=== PATIENT | female | born 1955 | race African-American/Black ===

== ENCOUNTER 2016-11-12 21:29 | Inpatient (IN) | payer OTHER, MEDICAID ==
[~2016-11-12] VITALS: Ht 152.4 cm; Wt 71.8 kg
[2016-11-12] MEDS ORDERED: TIOT185 IH (21:46)
[2016-11-12] MEDS ORDERED: PARO20TA24 PO (21:46)
[2016-11-12] MEDS ORDERED: METF500T4 PO (21:46)
[2016-11-12] MEDS ORDERED: ALBU8.5H8 IH (21:46)
[2016-11-12 22:08] LABS: BASOPHILS # (AUTO) 0.03 K/uL (0.00-0.20); BASOPHILS % (AUTO) 0.6 % (0.0-2.0); EOSINOPHILS # (AUTO) 0.14 K/uL (0.00-0.70); EOSINOPHILS % (AUTO) 2.48 % (1.0-6.0); HEMATOCRIT 36.3 % (36-46); HEMOGLOBIN 12.3 g/dL (12.0-16.0); LYMPHOCYTES # (AUTO) 2.5 K/uL (1.0-4.8); LYMPHOCYTES % (AUTO) 45.2 % (22.0-44.0); MEAN CORPUSCULAR HEMOGLOBIN 29.8 pg (26.0-34.0); MEAN CORPUSCULAR VOLUME 88 fL (80-100); MONOCYTES # (AUTO) 0.4 K/uL (0.1-1.0); MONOCYTES % (AUTO) 7.9 % (2.0-9.0); NEUTROPHILS # (AUTO) 2.4 K/uL (1.8-7.7); NEUTROPHILS % (AUTO) 43.9 % (40.0-70.0); PLATELET COUNT (AUTO) 281 K/uL (150-450); RED BLOOD CELL COUNT(AUTO) 4.14 MIL/uL (4.00-5.20); RED CELL DISTRIBUTION WIDTH 16.6 % (11.5-14.5); WHITE BLOOD COUNT (AUTO) 5.5 K/uL (4.5-11.0)
[2016-11-12 22:27] LABS: CALCIUM, TOTAL 8.9 mg/dL (8.8-10.5); POTASSIUM 3.7 mmol/L (3.5-5.1)
[2016-11-12 22:33] LABS: ALBUMIN 3.4 g/dL (3.4-5.0); BILIRUBIN,TOTAL 0.1 mg/dL (0.1-1.0); TOTAL PROTEIN, SERUM 7.5 g/dL (6.4-8.2)
[2016-11-12] MEDS ORDERED: HALOPERIDOL 5 MG TABLET PO PRN (23:45)
[2016-11-12 23:50] LABS: ADD UA MICROSCOPIC NO; APPEARANCE,URINE CLEAR (CLEAR); GLUCOSE, URINE (UA) NEGATIVE (NEGATIVE); KETONES,URINE NEGATIVE (NEGATIVE); LEUKOCYTE ESTERASE ,URINE NEGATIVE (NEGATIVE); OCCULT BLOOD,URINE NEGATIVE (NEGATIVE); PH,URINE 5.5 (5.0-8.0); PROTEIN,URINE NEGATIVE (NEGATIVE)
[2016-11-13] VITALS (8 sets, daily range): BP systolic 131–156; BP diastolic 73–89
[2016-11-13] MEDS ORDERED: IBUPROFEN 800 MG TABLET PO ONE
[2016-11-13] MEDS ORDERED: PNEUMOCOCCAL VACCINE POLYVALENT 0.5 ML VIAL [PPSV23] IM ONE (04:00)
[2016-11-13] MEDS: LORazepam 2 MG TABLET PO PRN ×3 (05:57→18:48)
[2016-11-13 06:52] LABS: GLUCOSE,POINT OF CARE 91 MG/DL (70-110)
[2016-11-13] MEDS ORDERED: ACETAMINOPHEN 325 MG TABLET PO PRN (08:45)
[2016-11-13] MEDS ORDERED: BACITRACIN 28.4 GM OINTMENT TP PRN (08:45)
[2016-11-13] MEDS ORDERED: ONDANSETRON HCL 4 MG TABLET PO PRN (08:45)
[2016-11-13] MEDS ORDERED: ALBUTEROL SULFATE HFA 90 MCG/PUFF 8 GM INHALER IH PRN (08:45)
[2016-11-13] MEDS ORDERED: LOPERAMIDE HCL 2 MG CAPSULE PO PRN (08:45)
[2016-11-13] MEDS ORDERED: MAGNESIUM HYDROXIDE SUSPENSION 30 ML UDCUP PO PRN (08:45)
[2016-11-13] MEDS ORDERED: MAG HYDROX/AL HYDROX/SIMETH ES 30 ML SUSPENSION UDCUP PO PRN (08:45)
[2016-11-13] MEDS ORDERED: PETROLATUM,WHITE 71 GM JELLY TP PRN (08:45)
[2016-11-13] MEDS ORDERED: CloNIDine HCL 0.1 MG TABLET PO PRN (08:45)
[2016-11-13] MEDS ORDERED: BENZOCAINE/MENTHOL LOZENGE MM PRN (08:45)
[2016-11-13] MEDS: PARoxetine HCL 20 MG TABLET PO SCH (09:38)
[2016-11-13] MEDS ORDERED: PRAV40TA4 PO (10:20)
[2016-11-13] MEDS ORDERED: METF500T4 PO (10:20)
[2016-11-13] MEDS ORDERED: HYDR25TA PO (10:20)
[2016-11-13] MEDS ORDERED: GLUCAGON,HUMAN RECOMBINANT 1 MG VIAL IM PRN (11:00)
[2016-11-13] MEDS ORDERED: INSULIN ASPART 100 UNITS/ML SQ PRN (11:00)
[2016-11-13 11:18] LABS: GLUCOSE,POINT OF CARE 80 MG/DL (70-110)
[2016-11-13] MEDS: HYDROCHLOROTHIAZIDE 25 MG TABLET PO SCH (12:00)
[2016-11-13] MEDS: TIOTROPIUM BROMIDE 18 MCG/INH HANDIHALER [5] IH SCH (16:07)
[2016-11-13] MEDS: PRAVASTATIN SODIUM 40 MG TABLET PO SCH (16:07)
[2016-11-13 16:17] LABS: GLUCOSE,POINT OF CARE 94 MG/DL (70-110)
[2016-11-13] MEDS: MetFORMIN HCL 500 MG TABLET PO SCH (17:07)
[2016-11-13 20:27] LABS: GLUCOSE,POINT OF CARE 108 MG/DL (70-110)
[2016-11-13] MEDS: ZOLPIDEM TARTRATE 10 MG TABLET PO PRN (21:29)
[2016-11-14] VITALS (7 sets, daily range): BP systolic 13–145; BP diastolic 8–93
[2016-11-14 06:28] LABS: GLUCOSE,POINT OF CARE 89 MG/DL (70-110)
[2016-11-14] MEDS: MetFORMIN HCL 500 MG TABLET PO SCH ×2 (06:55→16:54)
[2016-11-14 08:13] LABS: HEMOGLOBIN A1C 5.8 % (4.5-6.2)
[2016-11-14] MEDS: TIOTROPIUM BROMIDE 18 MCG/INH HANDIHALER [5] IH SCH (08:36)
[2016-11-14] MEDS: PRAVASTATIN SODIUM 40 MG TABLET PO SCH (08:36)
[2016-11-14] MEDS: PARoxetine HCL 20 MG TABLET PO SCH (08:36)
[2016-11-14] MEDS: HYDROCHLOROTHIAZIDE 25 MG TABLET PO SCH (08:36)
[2016-11-14 09:30] LABS: THYROID STIMULATING HORMONE 0.42 uIU/mL (0.36-3.74)
[2016-11-14 10:57] LABS: GLUCOSE,POINT OF CARE 100 MG/DL (70-110)
[2016-11-14] MEDS: IBUPROFEN 600 MG TABLET PO PRN ×2 (14:37→20:43)
[2016-11-14 20:48] LABS: GLUCOSE,POINT OF CARE 107 MG/DL (70-110)
[2016-11-15 06:17] LABS: GLUCOSE,POINT OF CARE 104 MG/DL (70-110)
[2016-11-15] MEDS: MetFORMIN HCL 500 MG TABLET PO SCH ×2 (06:46→16:39)
[2016-11-15 06:52] VITALS: BP 140/90
[2016-11-15 08:16] VITALS: BP 114/63
[2016-11-15] MEDS: PARoxetine HCL 20 MG TABLET PO SCH (09:11)
[2016-11-15] MEDS: TIOTROPIUM BROMIDE 18 MCG/INH HANDIHALER [5] IH SCH (09:11)
[2016-11-15] MEDS: PRAVASTATIN SODIUM 40 MG TABLET PO SCH (09:11)
[2016-11-15] MEDS: HYDROCHLOROTHIAZIDE 25 MG TABLET PO SCH (09:11)
[2016-11-15 12:23] VITALS: BP 139/77
[2016-11-15] MEDS: IBUPROFEN 600 MG TABLET PO PRN ×2 (12:23→20:47)
[2016-11-15 13:23] VITALS: BP 123/69
[2016-11-15 16:12] VITALS: BP 136/85
[2016-11-15] MEDS ORDERED: DICLOFENAC SODIUM 1% 100 GM GEL [2GM] TP PRN (17:30)
[2016-11-15] MEDS: LORazepam 2 MG TABLET PO PRN (20:46)
[2016-11-16 06:28] VITALS: BP 135/86
[2016-11-16 06:47] LABS: GLUCOSE,POINT OF CARE 96 MG/DL (70-110)
[2016-11-16] MEDS: MetFORMIN HCL 500 MG TABLET PO SCH ×2 (07:05→16:37)
[2016-11-16 09:06] VITALS: BP 120/67
[2016-11-16] MEDS: PARoxetine HCL 20 MG TABLET PO SCH (09:07)
[2016-11-16] MEDS: HYDROCHLOROTHIAZIDE 25 MG TABLET PO SCH (09:07)
[2016-11-16] MEDS: PRAVASTATIN SODIUM 40 MG TABLET PO SCH (09:07)
[2016-11-16] MEDS: NICOTINE 7 MG/24 HOUR PATCH TD SCH (09:07)
[2016-11-16] MEDS: TIOTROPIUM BROMIDE 18 MCG/INH HANDIHALER [5] IH SCH (09:07)
[2016-11-16] MEDS: IBUPROFEN 600 MG TABLET PO PRN ×2 (14:40→21:51)
[2016-11-16 14:46] VITALS: BP 120/73
[2016-11-16 16:10] VITALS: BP 129/73
[2016-11-16] MEDS: ZOLPIDEM TARTRATE 10 MG TABLET PO PRN (21:43)
[2016-11-16 21:47] VITALS: BP 132/82
[2016-11-17 05:42] VITALS: BP 139/67
[2016-11-17] MEDS: MetFORMIN HCL 500 MG TABLET PO SCH (06:46)
[2016-11-17] MEDS ORDERED: METF500T4 PO (07:57)
[2016-11-17] MEDS ORDERED: PARO20TA24 PO (07:57)
[2016-11-17 08:08] VITALS: BP 136/80
[2016-11-17] MEDS: HYDROCHLOROTHIAZIDE 25 MG TABLET PO SCH (08:53)
[2016-11-17] MEDS: PRAVASTATIN SODIUM 40 MG TABLET PO SCH (08:53)
[2016-11-17] MEDS: NICOTINE 7 MG/24 HOUR PATCH TD SCH (08:54)
[2016-11-17] MEDS: TIOTROPIUM BROMIDE 18 MCG/INH HANDIHALER [5] IH SCH (08:56)
[2016-11-17] MEDS ORDERED: PARoxetine HCL 20 MG TABLET PO SCH (09:00)
[2016-11-17 12:47] LABS: GLUCOSE,POINT OF CARE 106 MG/DL (70-110)
== END 2016-11-17 13:25 | disposition home or self-care (01) | DRG 885 ==
LOC: EMS 21:45 → AHU 11-13 00:25 → B2X 11-13 04:32
DX: F33.3 Major depressive disorder, recurrent, severe with psychotic symptoms (principal); E11.42 Type 2 diabetes mellitus with diabetic polyneuropathy; R45.851 Suicidal ideations; E11.65 Type 2 diabetes mellitus with hyperglycemia; E78.5 Hyperlipidemia, unspecified; F41.1 Generalized anxiety disorder; F42.9 Obsessive-compulsive disorder, unspecified; I10 Essential (primary) hypertension; M54.2 Cervicalgia; M54.5 Low back pain; C50.919 Malignant neoplasm of unspecified site of unspecified female breast; J44.9 Chronic obstructive pulmonary disease, unspecified; F17.200 Nicotine dependence, unspecified, uncomplicated; Z91.040 Latex allergy status; Z28.21 Immunization not carried out because of patient refusal; Z92.21 Personal history of antineoplastic chemotherapy; Z85.3 Personal history of malignant neoplasm of breast; Z91.5 Personal history of self-harm; Z56.0 Unemployment, unspecified; Z90.12 Acquired absence of left breast and nipple; Z72.89 Other problems related to lifestyle; Z71.41 Alcohol abuse counseling and surveillance of alcoholic
CPT/HCPCS: 82306; 82962; 83036; 84443; 99285; G0480

== ENCOUNTER 2017-02-14 10:51 | Inpatient (IN) | payer MEDICAID, OTHER, SELFPAY ==
[2017-02-14] VITALS (7 sets, daily range): BP systolic 142–154; BP diastolic 64–90
[~2017-02-14] VITALS: Ht 152.4 cm; Wt 74.3 kg
[~2017-02-14 10:51] MED LIST: HYDR25TA PO; METF500T4 PO; PARO20TA24 PO; PRAV40TA4 PO; TIOT185 IH
[2017-02-14] MEDS ORDERED: ALBUTEROL SULFATE HFA 90 MCG/PUFF 8 GM INHALER IH PRN (11:15)
[2017-02-14] MEDS ORDERED: ChlordiazePOXIDE HCL 25 MG CAPSULE PO PRN (11:15)
[2017-02-14 14:57] LABS: GLUCOSE COMMENT 1 Doctor Notified; GLUCOSE,POINT OF CARE 127 MG/DL (70-110)
[2017-02-14] MEDS ORDERED: PNEUMOCOCCAL VACCINE POLYVALENT 0.5 ML VIAL [PPSV23] IM ONE (15:00)
[2017-02-14] MEDS ORDERED: ACETAMINOPHEN 325 MG TABLET PO PRN (22:30)
[2017-02-14] MEDS: IBUPROFEN 400 MG TABLET PO PRN (22:35)
[2017-02-15] VITALS (10 sets, daily range): BP systolic 115–156; BP diastolic 69–91
[2017-02-15] MEDS ORDERED: ChlordiazePOXIDE HCL 25 MG CAPSULE PO PRN (07:00)
[2017-02-15] MEDS: IBUPROFEN 400 MG TABLET PO PRN ×2 (08:24→21:23)
[2017-02-15] MEDS: HYDROCHLOROTHIAZIDE 25 MG TABLET PO SCH (08:24)
[2017-02-15] MEDS: MULTIVITAMINS, THERAPEUTIC TABLET PO SCH (08:25)
[2017-02-15] MEDS: TIOTROPIUM BROMIDE 18 MCG/INH HANDIHALER [5] IH SCH (08:25)
[2017-02-15] MEDS: ChlordiazePOXIDE HCL 25 MG CAPSULE PO SCH ×4 (08:25→21:24)
[2017-02-15] MEDS: VITAMIN E 400 UNITS CAPSULE PO SCH (08:26)
[2017-02-15] MEDS: ASCORBIC ACID 500 MG TABLET PO SCH (08:26)
[2017-02-15] MEDS: PARoxetine HCL 20 MG TABLET PO SCH (08:27)
[2017-02-15 08:29] LABS: BASOPHILS % (AUTO) 0.4 % (0.0-2.0); EOSINOPHILS % (AUTO) 2.5 % (1.0-6.0); HEMOGLOBIN 12.5 g/dL (12.0-16.0); LYMPHOCYTES # (AUTO) 1.5 K/uL (1.0-4.8); LYMPHOCYTES % (AUTO) 28.6 % (22.0-44.0); MEAN CORPUSCULAR HEMOGLOBIN 29.4 pg (26.0-34.0); MEAN CORPUSCULAR HGB CONC 33.7 G/dL (31.0-37.0); MEAN CORPUSCULAR VOLUME 87 fL (80-100); MONOCYTES # (AUTO) 0.5 K/uL (0.1-1.0); NEUTROPHILS # (AUTO) 3.2 K/uL (1.8-7.7); NEUTROPHILS % (AUTO) 59.5 % (40.0-70.0); PLATELET COUNT (AUTO) 224 K/uL (150-450); RED BLOOD CELL COUNT(AUTO) 4.23 MIL/uL (4.00-5.20); RED CELL DISTRIBUTION WIDTH 14.3 % (11.5-14.5); WHITE BLOOD COUNT (AUTO) 5.3 K/uL (4.5-11.0)
[2017-02-15] MEDS: PRAVASTATIN SODIUM 40 MG TABLET PO SCH (09:01)
[2017-02-15 09:16] LABS: ALANINE AMINOTRANSFERASE 24 U/L (12-78); ANION GAP 5 mmol/L (8-16); ASPARTATE AMINOTRANSFERASE 22 U/L (15-37); BILIRUBIN,TOTAL 0.6 mg/dL (0.1-1.0); CALCIUM, TOTAL 8.9 mg/dL (8.8-10.5); CARBON DIOXIDE 30 mmol/L (22-29); CHLORIDE 107 mmol/L (98-107); CREATININE 0.93 mg/dL (0.60-1.30); GLOMERULAR FILTR. RATE CALC > 60 mL/min (>60); POTASSIUM 4.5 mmol/L (3.5-5.1); SODIUM SERUM 142 mmol/L (136-145); THYROID STIMULATING HORMONE 0.46 uIU/mL (0.36-3.74); TOTAL PROTEIN, SERUM 6.7 g/dL (6.4-8.2); UREA NITROGEN, BLOOD 15 mg/dL (7-18)
[2017-02-15] MEDS ORDERED: PARoxetine HCL 20 MG TABLET PO SCH (09:45)
[2017-02-15] MEDS ORDERED: CYANOCOBALAMIN 1,000 MCG/ML VIAL IM ONE (10:00)
[2017-02-15] MEDS: THIAMINE HCL 100 MG TABLET PO SCH ×2 (11:36→17:38)
[2017-02-15] MEDS: FOLIC ACID 1 MG TABLET PO SCH (11:36)
[2017-02-15] MEDS ORDERED: DOCUSATE SODIUM 100 MG CAPSULE PO PRN (20:30)
[2017-02-16] VITALS (7 sets, daily range): BP systolic 117–156; BP diastolic 72–88
[2017-02-16] MEDS: ChlordiazePOXIDE HCL 25 MG CAPSULE PO SCH ×4 (08:36→20:03)
[2017-02-16] MEDS: THIAMINE HCL 100 MG TABLET PO SCH ×2 (08:36→16:18)
[2017-02-16] MEDS: HYDROCHLOROTHIAZIDE 25 MG TABLET PO SCH (08:36)
[2017-02-16] MEDS: MULTIVITAMINS, THERAPEUTIC TABLET PO SCH (08:36)
[2017-02-16] MEDS: PRAVASTATIN SODIUM 40 MG TABLET PO SCH (08:36)
[2017-02-16] MEDS: TIOTROPIUM BROMIDE 18 MCG/INH HANDIHALER [5] IH SCH (08:36)
[2017-02-16] MEDS: VITAMIN E 400 UNITS CAPSULE PO SCH (08:36)
[2017-02-16] MEDS: PARoxetine HCL 20 MG TABLET PO SCH (08:36)
[2017-02-16] MEDS: ASCORBIC ACID 500 MG TABLET PO SCH (08:36)
[2017-02-16] MEDS: FOLIC ACID 1 MG TABLET PO SCH (08:36)
[2017-02-16] MEDS: IBUPROFEN 400 MG TABLET PO PRN (20:52)
[2017-02-17 00:08] VITALS: BP 138/82
[2017-02-17] MEDS ORDERED: ChlordiazePOXIDE HCL 10 MG CAPSULE PO PRN (07:00)
[2017-02-17 08:41] VITALS: BP 122/87
[2017-02-17] MEDS: ChlordiazePOXIDE HCL 10 MG CAPSULE PO SCH ×4 (08:54→20:31)
[2017-02-17] MEDS: FOLIC ACID 1 MG TABLET PO SCH (08:54)
[2017-02-17] MEDS: HYDROCHLOROTHIAZIDE 25 MG TABLET PO SCH (08:55)
[2017-02-17] MEDS: THIAMINE HCL 100 MG TABLET PO SCH ×2 (08:55→16:20)
[2017-02-17] MEDS: PARoxetine HCL 20 MG TABLET PO SCH (08:55)
[2017-02-17] MEDS: VITAMIN E 400 UNITS CAPSULE PO SCH (08:55)
[2017-02-17] MEDS: PRAVASTATIN SODIUM 40 MG TABLET PO SCH (08:55)
[2017-02-17] MEDS: MULTIVITAMINS, THERAPEUTIC TABLET PO SCH (08:55)
[2017-02-17] MEDS: ASCORBIC ACID 500 MG TABLET PO SCH (08:56)
[2017-02-17] MEDS: TIOTROPIUM BROMIDE 18 MCG/INH HANDIHALER [5] IH SCH (08:56)
[2017-02-17] MEDS: IBUPROFEN 400 MG TABLET PO PRN (09:18)
[2017-02-17 09:27] VITALS: BP 122/87
[2017-02-17 16:00] VITALS: BP 132/69
[2017-02-17] MEDS: GABAPENTIN 300 MG CAPSULE PO SCH (21:05)
[2017-02-18 00:22] VITALS: BP 120/67
[2017-02-18] MEDS ORDERED: ChlordiazePOXIDE HCL 10 MG CAPSULE PO PRN (07:00)
[2017-02-18 08:35] VITALS: BP 127/91
[2017-02-18] MEDS: ASCORBIC ACID 500 MG TABLET PO SCH (09:17)
[2017-02-18] MEDS: HYDROCHLOROTHIAZIDE 25 MG TABLET PO SCH (09:17)
[2017-02-18] MEDS: VITAMIN E 400 UNITS CAPSULE PO SCH (09:17)
[2017-02-18] MEDS: MULTIVITAMINS, THERAPEUTIC TABLET PO SCH (09:17)
[2017-02-18] MEDS: FOLIC ACID 1 MG TABLET PO SCH (09:17)
[2017-02-18] MEDS: PRAVASTATIN SODIUM 40 MG TABLET PO SCH (09:18)
[2017-02-18] MEDS: THIAMINE HCL 100 MG TABLET PO SCH ×2 (09:18→16:13)
[2017-02-18] MEDS: PARoxetine HCL 20 MG TABLET PO SCH (09:18)
[2017-02-18] MEDS: TIOTROPIUM BROMIDE 18 MCG/INH HANDIHALER [5] IH SCH (09:18)
[2017-02-18] MEDS: GABAPENTIN 300 MG CAPSULE PO SCH ×3 (09:18→16:13)
[2017-02-18 16:00] VITALS: BP 123/80
[2017-02-18] MEDS: IBUPROFEN 400 MG TABLET PO PRN (22:04)
[2017-02-18 22:05] VITALS: BP 129/82
[2017-02-19 06:55] VITALS: BP 141/86
[2017-02-19 06:56] VITALS: BP 141/86
[2017-02-19 08:42] VITALS: BP 122/77
[2017-02-19] MEDS: TIOTROPIUM BROMIDE 18 MCG/INH HANDIHALER [5] IH SCH (08:42)
[2017-02-19] MEDS: HYDROCHLOROTHIAZIDE 25 MG TABLET PO SCH (08:43)
[2017-02-19] MEDS: ASCORBIC ACID 500 MG TABLET PO SCH (08:43)
[2017-02-19] MEDS: VITAMIN E 400 UNITS CAPSULE PO SCH (08:43)
[2017-02-19] MEDS: MULTIVITAMINS, THERAPEUTIC TABLET PO SCH (08:43)
[2017-02-19] MEDS: PRAVASTATIN SODIUM 40 MG TABLET PO SCH (08:43)
[2017-02-19] MEDS: THIAMINE HCL 100 MG TABLET PO SCH ×2 (08:43→16:17)
[2017-02-19] MEDS: PARoxetine HCL 20 MG TABLET PO SCH (08:43)
[2017-02-19] MEDS: FOLIC ACID 1 MG TABLET PO SCH (08:43)
[2017-02-19] MEDS: GABAPENTIN 300 MG CAPSULE PO SCH ×3 (08:43→16:17)
[2017-02-19] MEDS ORDERED: LORazepam 2 MG TABLET PO PRN (14:15)
[2017-02-19 16:35] VITALS: BP 122/80
[2017-02-19] MEDS: IBUPROFEN 400 MG TABLET PO PRN (16:35)
[2017-02-19 16:44] VITALS: BP 120/74
[2017-02-20 00:53] VITALS: BP 124/60
[2017-02-20] MEDS: VITAMIN E 400 UNITS CAPSULE PO SCH (08:23)
[2017-02-20] MEDS: TIOTROPIUM BROMIDE 18 MCG/INH HANDIHALER [5] IH SCH (08:23)
[2017-02-20] MEDS: PARoxetine HCL 20 MG TABLET PO SCH (08:23)
[2017-02-20] MEDS: FOLIC ACID 1 MG TABLET PO SCH (08:23)
[2017-02-20] MEDS: HYDROCHLOROTHIAZIDE 25 MG TABLET PO SCH (08:23)
[2017-02-20] MEDS: GABAPENTIN 300 MG CAPSULE PO SCH ×2 (08:23→12:35)
[2017-02-20] MEDS: THIAMINE HCL 100 MG TABLET PO SCH (08:24)
[2017-02-20] MEDS: ASCORBIC ACID 500 MG TABLET PO SCH (08:24)
[2017-02-20] MEDS: MULTIVITAMINS, THERAPEUTIC TABLET PO SCH (08:24)
[2017-02-20] MEDS: PRAVASTATIN SODIUM 40 MG TABLET PO SCH (08:24)
[2017-02-20 08:54] VITALS: BP 138/79
[2017-02-20] MEDS: IBUPROFEN 400 MG TABLET PO PRN (08:55)
[2017-02-20] MEDS ORDERED: GABA300C PO (10:13)
[2017-02-20] MEDS ORDERED: ALBU8HFA4 IH (10:13)
[2017-02-20] MEDS ORDERED: CHOL400T4 PO (10:13)
[2017-02-20] MEDS ORDERED: ASCO10007 PO (10:30)
[2017-02-20] MEDS ORDERED: HYDR25TA PO (10:32)
[2017-03-28] MEDS ORDERED: ATEN50TA PO (12:08)
== END 2017-02-20 13:30 | disposition home or self-care (01) | DRG 751 ==
LOC: EDSTATUS 11:41 → B3A 11:48 → UNDOADMIN 12:41 → B3A 12:41 → B2S 02-16 11:15
PROVIDERS: ADMIT Psychiatry & Neurology Child & Adolescent Psychiatry
DX: F33.2 Major depressive disorder, recurrent severe without psychotic features (principal); R45.851 Suicidal ideations; C50.919 Malignant neoplasm of unspecified site of unspecified female breast; I10 Essential (primary) hypertension; E78.5 Hyperlipidemia, unspecified; F10.229 Alcohol dependence with intoxication, unspecified; F17.200 Nicotine dependence, unspecified, uncomplicated; G47.00 Insomnia, unspecified; J44.9 Chronic obstructive pulmonary disease, unspecified; K21.9 Gastro-esophageal reflux disease without esophagitis; K59.00 Constipation, unspecified; Z90.12 Acquired absence of left breast and nipple; Z81.8 Family history of other mental and behavioral disorders; Z92.21 Personal history of antineoplastic chemotherapy; Z92.3 Personal history of irradiation; Z79.84 Long term (current) use of oral hypoglycemic drugs; Z79.899 Other long term (current) drug therapy; Z91.040 Latex allergy status
CPT/HCPCS: 82962; 84439; 84443; J3420; J3535

== ENCOUNTER 2017-10-02 01:34 | Emergency (ER) | payer SELFPAY ==
[~2017-10-02] VITALS: Ht 162.6 cm; Wt 77.3 kg
[~2017-10-02 01:34] MED LIST changes: +ATEN50TA PO; +GABA300C PO; -HYDR25TA PO; -METF500T4 PO; -PRAV40TA4 PO; -TIOT185 IH
[2017-10-02 02:09] LABS: GLUCOSE,POINT OF CARE 87 MG/DL (70-110)
[2017-10-02] MEDS ORDERED: QUET25TA PO (02:24)
[2017-10-02] MEDS ORDERED: BUSP5TAB20 PO (02:24)
[2017-10-02 03:02] LABS: BASOPHILS % (AUTO) 0.6 % (0.0-2.0); EOSINOPHILS % (AUTO) 1.8 % (1.0-6.0); HEMATOCRIT 40.6 % (36-46); HEMOGLOBIN 13.7 g/dL (12.0-16.0); LYMPHOCYTES # (AUTO) 2.9 K/uL (1.0-4.8); LYMPHOCYTES % (AUTO) 37.7 % (22.0-44.0); MEAN CORPUSCULAR HEMOGLOBIN 28.2 pg (26.0-34.0); MEAN CORPUSCULAR HGB CONC 33.6 G/dL (31.0-37.0); MEAN CORPUSCULAR VOLUME 84 fL (80-100); MONOCYTES # (AUTO) 0.5 K/uL (0.1-1.0); MONOCYTES % (AUTO) 6.8 % (2.0-9.0); NEUTROPHILS # (AUTO) 4.1 K/uL (1.8-7.7); NEUTROPHILS % (AUTO) 53.1 % (40.0-70.0); PLATELET COUNT (AUTO) 291 K/uL (150-450); RED BLOOD CELL COUNT(AUTO) 4.85 MIL/uL (4.00-5.20); RED CELL DISTRIBUTION WIDTH 13.8 % (11.5-14.5)
[2017-10-02 03:03] LABS: ANION GAP 14 mmol/L (8-16); CALCIUM, TOTAL 8.4 mg/dL (8.8-10.5); CARBON DIOXIDE 25 mmol/L (22-29); CHLORIDE 105 mmol/L (98-107); CREATININE 1.04 mg/dL (0.60-1.30); GLOMERULAR FILTR. RATE CALC > 60 mL/min (>60); GLUCOSE,RANDOM 102 mg/dL (70-110); POTASSIUM 3.5 mmol/L (3.5-5.1); SODIUM SERUM 144 mmol/L (136-145); UREA NITROGEN, BLOOD 22 mg/dL (7-18)
[2017-10-02 03:10] LABS: ALANINE AMINOTRANSFERASE 26 U/L (12-78); ALBUMIN 3.4 g/dL (3.4-5.0); ALKALINE PHOSPHATASE 131 U/L (46-116); ASPARTATE AMINOTRANSFERASE 23 U/L (15-37); BILIRUBIN,TOTAL 0.2 mg/dL (0.1-1.0); TOTAL PROTEIN, SERUM 7.6 g/dL (6.4-8.2)
[2017-10-02 03:10] LABS: AMPHET/METH SCREEN,URINE NEGATIVE (NEGATIVE); BARBITURATE SCREEN, URINE NEGATIVE (NEGATIVE); BENZODIAZEPINES SCREEN,URINE NEGATIVE (NEGATIVE); CANNABINOID SCREEN,URINE NEGATIVE (NEGATIVE); COCAINE SCREEN,URINE NEGATIVE (NEGATIVE); METHADONE SCREEN, URINE NEGATIVE (NEGATIVE); OPIATE SCREEN,URINE NEGATIVE (NEGATIVE); PHENCYCLIDINE SCREEN,URINE NEGATIVE (NEGATIVE)
[2017-10-02 03:33] VITALS: BP 137/89
== END 2017-10-02 03:36 | disposition home or self-care (01) ==
LOC: EMS 01:34
DX: F10.229 Alcohol dependence with intoxication, unspecified (principal); R45.851 Suicidal ideations; F32.9 Major depressive disorder, single episode, unspecified; J45.909 Unspecified asthma, uncomplicated; I10 Essential (primary) hypertension; E11.9 Type 2 diabetes mellitus without complications; F17.210 Nicotine dependence, cigarettes, uncomplicated; Y90.8 Blood alcohol level of 240 mg/100 ml or more; Z88.6 Allergy status to analgesic agent; Z91.040 Latex allergy status
CPT/HCPCS: 36415; 80053; 80307; 82962; 85025; 99285; G0480